=== PATIENT | male | born 1940 | race Caucasian/White ===

== ENCOUNTER 2023-04-28 01:25 | Emergency (ER) | payer BC, OTHER ==
[2023-04-28 01:44] VITALS: BMI 19.4
[2023-04-28] MEDS ORDERED: SODIUM CHLORIDE 0.9% 500 ML INFUS.BAG IV ONE (02:01)
[2023-04-28 02:39] LABS: POTASSIUM 3.4 mmol/L (3.5-5.1)
[2023-04-28 02:42] LABS: ALBUMIN 1.7 g/dl (3.4-5.0); BLOOD UREA NITROGEN 35.8 mg/dL (7-18); CALCIUM 8.3 mg/dL (8.5-10.1)
[2023-04-28 02:45] LABS: INR 1.25 (0.83-1.09); PROTHROMBIN TIME (PATIENT) 14.5 SEC (9.7-13.0)
[2023-04-28 02:46] LABS: CREATININE 4.2 mg/dL (0.55-1.3)
[2023-04-28 02:48] LABS: ACTIVATED PTT 20.4 SECONDS (25.2-36.5); TOT PROT 4.8 g/dl (6.4-8.2)
[2023-04-28 03:30] LABS: BILIRUBIN,TOTAL 0.6 mg/dL (0.2-1); LACTIC ACID 3.3 mmol/L (0.4-2.0)
[2023-04-28 04:49] LABS: CHLORIDE 104 mmol/L (98-107); SODIUM 139 mmol/L (136-145)
[2023-04-28 04:53] LABS: ALBUMIN 1.6 g/dl (3.4-5.0); BLOOD UREA NITROGEN 38.1 mg/dL (7-18); CO2 24 mmol/L (21-32); GLUCOSE,RANDOM 242 mg/dL (74-106)
[2023-04-28 04:56] LABS: CREATININE 4.2 mg/dL (0.55-1.3); SGOT/AST 20 U/L (15-37); SGPT/ALT 18 U/L (13-61)
[2023-04-28 04:58] LABS: ALK PHOS 113 U/L (45-117); BILIRUBIN,TOTAL 0.3 mg/dL (0.2-1); TOT PROT 4.4 g/dl (6.4-8.2)
[2023-04-28 05:04] LABS: HEMATOCRIT 35.5 % (35.4-49); HEMOGLOBIN 11.4 GM/dL (11.7-16.9); MCH 28.4 pg (25.7-33.7); MEAN CELL VOLUME 88.6 fl (80-96); MEAN PLT VOLUME 7.2 fl (7.5-11.1); PLATELET COUNT 322 10^3/uL (134-434); RBC 4.01 M/mm3 (4.00-5.60); RDW 18.7 % (11.9-15.9); WHITE BLOOD COUNT 17.7 K/mm3 (4.0-10.0)
[2023-04-28 05:07] LABS: ANION GAP 12 MMOL/L (8-16); POTASSIUM 2.9 mmol/L (3.5-5.1)
[2023-04-28] MEDS ORDERED: DIPHTH,PERTUSS(ACELL),TET 0.5 ML DISP.SYRIN IM ONE (05:19)
[2023-04-28 05:26] LABS: LACTIC ACID 2.6 mmol/L (0.4-2.0)
[2023-04-28] MEDS: KCL 10 MEQ IVPB 10 MEQ/100 ML INFUS.BAG IVPB SCH ×3 (05:32→07:38)
[2023-04-28] MEDS ORDERED: HEPARIN NA (PORCINE) 5,000 UNITS/ML 1ML VIAL IVPUSH ONE (05:52)
[2023-04-28] MEDS ORDERED: HEPARIN NA (PORCINE) 5,000 UNITS/ML 1ML VIAL ONE (06:12)
[2023-04-28] MEDS ORDERED: HEPARIN NA (PORCINE) 5,000 UNITS/ML 1ML VIAL IVPUSH PRN ×2 (06:22)
[2023-04-28 06:29] LABS: MAGNESIUM 1.7 mg/dL (1.8-2.4)
[2023-04-28] MEDS ORDERED: HEPARIN - 25,000 UNIT in SODIUM CHLORIDE 495 ML IV SCH (06:30)
[2023-04-28] MEDS ORDERED: MEROPENEM 1 GM in DEXTROSE 5%-WATER 100 ML IVPB ONE (07:22)
[2023-04-28] MEDS ORDERED: MIDODRINE HCL 5 MG TABLET PO ONE ×3 (07:23→09:55)
[2023-04-28] MEDS ORDERED: MEROPENEM 1 GM VIAL (RESTRICTED TO ID) IVPB ONE (07:29)
[2023-04-28] MEDS ORDERED: KCL 10 MEQ IVPB 10 MEQ/100 ML INFUS.BAG IVPB ONE (07:30)
[2023-04-28 07:40] VITALS: RESP 20
[2023-04-28] MEDS ORDERED: MIDODRINE HCL 5 MG TABLET ONE ×2 (08:40→10:08)
[2023-04-28] MEDS ORDERED: ACETAMINOPHEN 1000 MG/100 ML BAG IVPB ONE (08:48)
[2023-04-28] MEDS ORDERED: ACETAMINOPHEN INJECTION 100 ML IVPB ONE (08:51)
[2023-04-28 08:56] LABS: ANISOCYTOSIS 1+; MACROCYTOSIS 0
[2023-04-28 11:16] VITALS: BP 95/61; PULSE 94; TEMP 96.8
== END 2023-04-28 11:16 | disposition short-term general hospital (02) ==
LOC: JER 01:25
PROC: 3E03329 Introduction of Other Anti-infective into Peripheral Vein, Percutaneous Approach (ICD-10-PCS; principal; 2023-04-28)
PROC: 3E03329 Introduction of Other Anti-infective into Peripheral Vein, Percutaneous Approach (ICD-10-PCS; 2023-04-28)
PROC: 3E033NZ Introduction of Analgesics, Hypnotics, Sedatives into Peripheral Vein, Percutaneous Approach (ICD-10-PCS; 2023-04-28)
PROC: 3E033GC Introduction of Other Therapeutic Substance into Peripheral Vein, Percutaneous Approach (ICD-10-PCS; 2023-04-28)
PROC: 3E0234Z Introduction of Serum, Toxoid and Vaccine into Muscle, Percutaneous Approach (ICD-10-PCS; 2023-04-28)
DX: I26.99 Other pulmonary embolism without acute cor pulmonale (principal); J18.9 Pneumonia, unspecified organism; E87.6 Hypokalemia; R19.7 Diarrhea, unspecified; I95.9 Hypotension, unspecified; L89.154 Pressure ulcer of sacral region, stage 4; M79.604 Pain in right leg; R10.2 Pelvic and perineal pain; R51.9 Headache, unspecified; S00.81XA Abrasion of other part of head, initial encounter; W06.XXXA Fall from bed, initial encounter; Y93.89 Activity, other specified; Y92.092 Bedroom in other non-institutional residence as the place of occurrence of the external cause
CPT/HCPCS: 0241U-QW; 36415; 70450-TC; 71045-TC-FY; 71275-TC; 72125-TC; 72131-TC; 72170-TC-FY; 74174-TC; 80053; 82272; 82553; 83605; 83735; 84484; 85025; 85610; 85730; 86850; 86900; 86901; 87040; 87045; 87046; 90471; 90715; 93005; 93010; 96365; 96367; 96375; 99285-25; J1644; Q9967